=== PATIENT | male | born 1975 | race Caucasian/White ===

== ENCOUNTER 2019-01-03 16:21 | Emergency (ER) | payer SELFPAY ==
[~2019-01-03] VITALS: Ht 175.3 cm; Wt 70.3 kg
[2019-01-03 16:21] VITALS: BP_SYST 135
[~2019-01-03 16:21] MED LIST: prednisone; vicodin
--- NOTE | 2019-01-03 16:21 | NUR ---
BROUGHT BACK TO BED #7 AND TRIAGED. REPORT GIVEN TO ADALBERTO
--- NOTE | 2019-01-03 16:25 | NUR ---
Patient to ER via triage for evaluation of dysuria and sore penis after having unprotected sex 4 days ago. Patient is awake, alert and oriented in no acute distress, HR elevated but vital signs otherwise stable, respirations even and unlabored, skin warm and dry to touch. Patient able to ambulate without difficulty with slow, steady gait to bed 7. Patient provided with urinal to attempt to provide urine sample.
--- NOTE | 2019-01-03 16:35 | NUR ---
ER at bedside examining patient.
--- NOTE | 2019-01-03 16:40 | NUR ---
Patient refusing IV and lab work, stating that he is only here for medication. Dr Herman notified of patient refusing labs/IV.
[2019-01-03] MEDS ORDERED: NACL 0.9% 1,000 ML IV ONE (16:45)
--- NOTE | 2019-01-03 16:50 | NUR ---
Dr Herman at bedside speaking with patient regarding plan of care, questions answered by Dr Herman
[2019-01-03] MEDS ORDERED: cefTRIAXone 250 MG in LIDOCAINE 1%, 20 ML MDV 0.9 ML IM ONE (17:00)
[2019-01-03] MEDS ORDERED: AZITHROMYCIN 250 MG TABLET PO ONE (17:00)
[2019-01-03] MEDS ORDERED: IBUPROFEN 800 MG TABLET PO ONE (17:00)
[2019-01-03 17:30] VITALS: BP_SYST 127
--- NOTE | 2019-01-03 17:31 | NUR ---
Patient given written and verbal discharge instructions and verbalizes understanding. ER MD discussed with patient the results and treatment provided. Patient in stable condition. ID arm band removed. Rx of MOTRIN given. Patient educated on pain management and to follow up with PMD. Pain Scale 0/10. Opportunity for questions provided and answered. Medication side effect fact sheet provided.
== END 2019-01-03 17:31 | disposition home or self-care (01) ==
LOC: SED 16:21
DX: A64 Unspecified sexually transmitted disease (principal); R03.0 Elevated blood-pressure reading, without diagnosis of hypertension
CPT/HCPCS: 96372; 99283; J0696; J2001; Q0144

== ENCOUNTER 2019-03-11 15:34 | Emergency (ER) | payer SELFPAY ==
--- NOTE | 2019-03-11 15:38 | NUR ---
ASSISTED PT UP OFF FLOOR TO WHEELCHAIR, PLACED FOR ADMITTING TO GET INFORMATION.
--- NOTE | 2019-03-11 15:41 | NUR ---
SECURITY CALLED TO ER [facility] DUE TO PT SCREAMING AND YELLING LOUDLY, USING PROFANITY.
--- NOTE | 2019-03-11 15:41 | NUR ---
PT YELLING AND SCREAMING AT STAFF FOR PAIN MEDICATION, WILL TRIAGE PT SHORTLY, HIGH VOLUME OF PTS AT THIS TIME.
--- NOTE | 2019-03-11 15:42 | NUR ---
PT ASKED TO BE WHEELCHAIRED TO HIS CAR TO GET HIS WALLET, [employer] WHEELED PT TO CAR, SECURITY WITH THEM. PT JUMPED IN HIS CAR SCREAMING PROFANITY OUT OF THE CAR, PT HAD TWO CHILDREN WITH HIM IN CAR. PT LEFT WITHOUT BEING SEEN.
== END 2019-03-11 15:42 | disposition left against medical advice (07) ==
LOC: SED 15:34
DX: Z53.21 Procedure and treatment not carried out due to patient leaving prior to being seen by health care provider (principal)